=== PATIENT | female | born 1950 | race Hispanic/Latino ===

== ENCOUNTER 2017-08-09 06:14 | Day surgery (SDC) | payer MEDICARE ==
[2017-08-09] MEDS ORDERED: Bupivacaine 0.5% Inj(30mL) ONE (07:41)
[2017-08-09] MEDS ORDERED: Propofol 10 mg/ml Inj (20 ML) ONE (08:10)
[2017-08-09] MEDS ORDERED: Midazolam 2 MG/2 ML VIAL ONE (08:11)
[2017-08-09] MEDS ORDERED: Rocuronium 10 mg/ml (5 ml) ONE (08:20)
[2017-08-09] MEDS ORDERED: Succinylcholine 200 mg/10 ml Inj IV ONE (08:20)
[2017-08-09] MEDS ORDERED: Sevoflurane - Inhalation Anesthetic Liq (250 ml) ONE (08:23)
[2017-08-09] MEDS ORDERED: ePHEDrine 50 mg/ml Inj ONE (08:47)
[2017-08-09] MEDS ORDERED: HYDROmorphone 0.5 mg/0.5 ml ISec IVP PRN ×2 (10:24→11:08)
[2017-08-09] MEDS ORDERED: Lactated Ringer's 1,000 ML IV SCH (10:30)
[2017-08-09] MEDS ORDERED: Glycopyrrolate 0.2 mg/ml (2ml vial) ONE (10:47)
[2017-08-09] MEDS ORDERED: Oxycodone/Acetaminophen 5/325 mg Tab PO PRN (11:09)
--- NOTE | 2017-08-09 11:17 | PCM.SURG1 ---
Surgeon's Initial Post Op Note - Surgeon's Notes Surgeon: Dr. Scott Account Management Assistant: Jose Cruz Bryson PGY2, Salome PGY3 Pre-Operative Diagnosis: Papillaly thyroid CA Operative Findings: Frozen section : neck lymph node + for papillary CA Post-Operative Diagnosis: Same Operation Performed: total thyroidectomy Specimen/Specimens Removed: Thyroid, 1 parathyroid, central lymph node Estimated Blood Loss: EBL {In ML}: 20 Blood Products Given: N/A Drains Used: No Drains Post-Op Condition: Good Date of Surgery/Procedure: 08/09/17 Time of Surgery/Procedure: :18
[2017-08-09] MEDS ORDERED: HYDROmorphone 0.5 mg/0.5 ml ISec ONE (11:51)
[2017-08-09] MEDS ORDERED: HYDROmorphone 0.5 mg/0.5 ml ISec IVP ONE (11:55)
[2017-08-09 12:43] VITALS: TEMP 97.9
[2017-08-09 18:30] VITALS: PULSE 56; RESP 18
[2017-08-09 19:45] VITALS: BP 106/52; O2SAT 95
[2017-08-09] MEDS ORDERED: Sodium Chloride 0.9% 500 ML IV STA (19:49)
--- NOTE | 2017-08-13 10:10 | OP ---
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 PROCEDURES PERFORMED: Total thyroidectomy with adjacent lymphadenectomy. SURGEON: Callum Scott MD. PUBLIC TRANSPORTATION INSPECTOR: Dr. Roth and Dr. Bryson. ANESTHESIOLOGIST: Dr. Pelayo. ANESTHESIA: General endotracheal anesthesia. ESTIMATED BLOOD LOSS: Minimal. SPECIMEN: Thyroid and adjacent tissue of the lymph nodes. INDICATION FOR THE PROCEDURE: The patient is a 67-year-old female who nodule on the left thyroid on the ultrasound and subsequent fascia. The patient's previous ultrasound showed no evidence of any lymphadenopathy. The patient was brought in for a total thyroidectomy. DESCRIPTION OF PROCEDURE: The patient was brought to the operating room, placed on operating table in supine position. The patient was connected to the EKG, blood pressure, and pulse oximetry monitors. The patient then underwent general endotracheal anesthesia and was prepped and draped in usual sterile fashion with extension of the neck. First, an incision was made 2 cm above the sternal notch and carefully, dissection was done through the subcutaneous fat and platysma muscle down to the sharp muscles. Once this incision was carried from the edge of the sternocleidomastoid muscle on the right. The strap muscles were then carefully with gentle dissection. Prior to starting of the procedure, a standard time-out procedure took place and everybody in the room agreed as to the patient identity, diagnosis and the procedure to be performed and also, the operative plan as well as postoperative course were discussed with the entire surgical team. Once the right lobe of the thyroid was exposed, it was carefully immobilized along its lateral wall down to the inferior thyroid artery branches. I then proceeded with mobilization of the upper portion of the right thyroid lobe and exposed the superior thyroid artery and then, both of these were taken using Harmonic scalpel. Further dissection was done gland and branches of the inferior thyroid artery were also transected using Harmonic scalpel and along with the dissection, upper and lower right parathyroids were noted. The course of the recurrent laryngeal nerve was also identified and appeared to be separate from the dissection field for the elevation of the thyroid. Now, the thyroid was detached from the trachea by transecting the Reynolds ligament. I then proceeded with mobilization of the left side of the thyroid with similar fashion by elevating the lateral edge of the thyroid, carefully the superior thyroid artery and vein and transected with the Harmonic scalpel. The inferior branches of veins were also transected using Harmonic scalpel. Now, the recurrent laryngeal nerve was identified and appeared to be separate from the field of dissection and was left intact. The left thyroid was carefully elevated and dissected out completely from the underlying tissues. Then, parietal lobe, which was also included and the specimen appeared to be contain adjacent lymph node, which was visible and palpable and was sent for pathology as a frozen section, which showed presence of papillary carcinoma. I then proceeded with inclusion of all the loose fatty tissues surrounding the area of dissection and search for additional lymph nodes in the entire anterior compartments. There was no evidence of any enlarged lymph nodes or prominent lymph nodes and therefore, a careful dissection could allow me only to take some fatty pads from the anterior compartment of the neck in order to include some lymph nodes. Now, it was completely detached and after identifying both recurrent laryngeal nerves as well as left and right inferior and superior parathyroid, I then proceeded with irrigation of the wound and carefully, suctioned out. Once there was noted good hemostasis, we then proceeded with closure of the wound irrigation and strap muscles were reapproximated using 3-0 Vicryl, deep dermal layers were then closed with 3-0 Vicryl as well and the skin was closed with 4-0 Monocryl. A sterile Dermabond dressing was applied to the wound and the patient tolerated the procedure well. Calulm Scott MD
== END 2017-08-09 20:00 | disposition home or self-care (01) ==
LOC: SDS 06:14
PROVIDERS: ATTEND General Practice
DX: C73 Malignant neoplasm of thyroid gland (principal); C77.0 Secondary and unspecified malignant neoplasm of lymph nodes of head, face and neck; I10 Essential (primary) hypertension
CPT/HCPCS: 36415; 60252; 82310; 88305; 88307; 88331; J0330; J0690; J1170; J2001; J2250; J2405; J2704; J2765; J3010; J7040; J7120 ×2